=== PATIENT | female | born 1985 | race Two or more races ===

== ENCOUNTER → 2021-01-19 11:54 | Outpatient (BNVA) | payer OTHER, SELFPAY | PROVIDERS: Visit Provider Surgery ==

== ENCOUNTER 2021-01-24 13:13 | Outpatient (REF) | payer OTHER, SELFPAY ==
--- NOTE | ~2021-01-24 | XR_ITS ---
EXAMINATION: XR CHEST CLINICAL INFORMATION: Obesity COMPARISON: Previous chest x-ray July 2019 TECHNIQUE: 2 views of the chest were obtained. FINDINGS: No significant abnormality is noted involving the heart, lungs, mediastinum, bony thorax or soft tissues. XR/XR chest 2V IMPRESSION: Unremarkable examination.
--- NOTE | 2021-01-24 13:28 | ECG_ITS ---
Test Reason : E66.01 Blood Pressure : / mmHG Vent. Rate : 078 BPM Atrial Rate : 078 BPM P-R Int : 152 ms QRS Dur : 078 ms QT Int : 400 ms P-R-T Axes : 029 034 032 degrees QTc Int : 456 ms Normal sinus rhythm Normal ECG When compared with ECG of 30-JUL-2019 11:40, No significant change was found Referred By: Saul Tomas Electronically Signed By:Udya Flores
[2021-01-24 13:55] LABS: MANUAL DIFF FLAG NO
[2021-01-24 14:16] LABS: Basophils Percent Auto 0.5 % (0-2); Eosinophils Absolute Auto 0.2 X10*3/uL (0.0-0.4); Eosinophils Percent Auto 2.7 % (0-4); Hematocrit 32.2 % (37-47); Hemoglobin 9.8 g/dl (12.0-16.0); Imm Gran Abs Auto 0.02 X10*3/uL (0.00-0.03); Imm Gran Pct Auto 0.4 % (0.0-0.4); Lymphocytes Absolute Auto 1.6 X10*3/uL (1.2-4.9); Lymphocytes Percent Auto 28.6 % (20-40); Mean Corpuscular HGB Conc 30.4 g/dl (31.0-35.0); Mean Corpuscular Volume 78.9 fL (80-98); Mean Platelet Volume 11.1 fL (9.4-12.3); Monocytes Absolute Auto 0.4 X10*3/uL (0.1-1.2); Neutrophils Absolute Auto 3.3 X10*3/uL (2.0-8.3); Neutrophils Percent Auto 59.8 % (45-73); Platelet Count 293 X10*3/uL (160-400); Red Blood Count 4.08 X10*6/uL (4.20-5.50); Red Cell Distribution Width 16.5 % (11.0-16.0); White Blood Count 5.5 X10*3/uL (4.8-10.8)
[2021-01-24 14:20] LABS: Alanine Aminotransferase 13 U/L (0-31); Alkaline Phosphatase 67 U/L (39-117); Anion Gap 12 (12-20); Aspartate Amino Transferase 12 U/L (5-31); Bilirubin Total 0.3 mg/dL (0.0-1.0); Blood Urea Nitrogen 16 mg/dL (9-16); C Reactive Protein 1.49 mg/dL (< or = 0.50); Calcium 8.7 mg/dL (8.4-10.2); Carbon Dioxide 24 mmol/L (22-29); Chloride 109 mmol/L (96-108); Cholesterol 185 mg/dL; Estimated Glomerular Filt Rate > 60; Glucose Random 91 mg/dL (60-115); HDL Cholesterol 41 mg/dL; LDL Cholesterol Calculated 125 mg/dl; Potassium 4.7 mmol/L (3.3-5.1); Sodium 140 mmol/L (135-145); Total Protein 7.1 g/dL (6.5-8.0); Triglycerides 96 mg/dL
[2021-01-24 14:27] LABS: Estimated Average Glucose 103 mg/dL; Hemoglobin A1c % 5.2 %
[2021-01-24 14:42] LABS: Ferritin 14 ng/mL (10-122); TSH reflex Free T4 0.78 uIU/mL (0.32-4.0)
[2021-01-24 15:14] LABS: Folate 14.2 ng/mL (> or = 4.0); Vitamin B12 437 pg/mL (200-900)
[2021-01-25 04:41] LABS: Insulin Level Total 25.9 uIU/mL
[2021-01-25 17:52] LABS: Calcium (PTHI) 8.9 mg/dL (8.6-10.2); PTHI 56 pg/mL (14-64)
[2021-01-26 17:06] LABS: Zinc 50 mcg/dL (60-130)
[2021-01-28 13:31] LABS: Vitamin B1 13 nmol/L (8-30)
[2021-01-28 15:26] LABS: Vitamin A 31 mcg/dL (38-98)
== END 2021-01-24 13:14 | disposition home or self-care (01) ==
LOC: HO.LAB 13:13
PROVIDERS: Visit Provider Surgery
DX: E66.01 Morbid (severe) obesity due to excess calories (principal); R73.03 Prediabetes; G47.30 Sleep apnea, unspecified; K21.9 Gastro-esophageal reflux disease without esophagitis
CPT/HCPCS: 36415; 71046; 80053; 80061; 82306; 82607; 82728; 82746; 83036; 83525; 83970; 84425; 84443; 84590; 84630; 85025; 86140; 93005

== ENCOUNTER → 2021-02-03 14:11 | Outpatient (BNVA) | payer OTHER, SELFPAY | PROVIDERS: PCP Internal Medicine; Visit Provider Dietitian, Registered | DX: E66.01 Morbid (severe) obesity due to excess calories (principal) | CPT/HCPCS: 97802 ==

== ENCOUNTER 2021-02-08 07:46 | Outpatient (REF) | payer OTHER, SELFPAY ==
--- NOTE | ~2021-02-08 | FL_ITS ---
EXAMINATION: XR GI SERIES CLINICAL INFORMATION: Morbid to severe obesity. COMPARISON: None TECHNIQUE: Routine upper GI air-contrast study was performed. FINDINGS: Following oral administration of thick barium and effervescent granules, there is normal propagation of bolus from the oral cavity through the pharynx, esophagus into stomach without any evidence of obstruction, narrowing or stricture. The course, caliber and peristalsis of the stomach, duodenal bulb and the sweep are normal. The mucosal pattern of the stomach and the duodenum is normal. Incidental note is made of cholecystectomy. FLUOROSCOPY TIME: 1.4 minutes DOSE AREA PRODUCT: 63.562 uGy-m2 (microgray-meter squared) FL/FL upper GI series IMPRESSION: Unremarkable upper GI air-contrast study.
--- NOTE | ~2021-02-08 | US_ITS ---
EXAMINATION: US COMPLETE ABDOMEN WITH LIVER ELASTOGRAPHY CLINICAL INFORMATION: Eyqqshij-sy-pxwstf obesity due to excess calories. COMPARISON: None. TECHNIQUE: Real-time imaging of the abdominal viscera. Noninvasive ultrasound liver fibrosis assessment is performed using Kanu ElastPQ point quantification shear wave elastography (pSWE) with a C5-2 MHz transducer. Multiple elastography samples are obtained. FINDINGS: PANCREAS: The tail of the pancreas is obscured by overlying gas. The visualized pancreatic head and body are normal in appearance. The remainder of the pancreas is obscured from visualization by the overlying bowel gas. ABDOMINAL AORTA: The proximal, middle, and distal aortic segments are normal in caliber. INFERIOR VENA CAVA: Visualized portions are normal. LIVER: The liver demonstrates normal size, contour and increased echogenicity. No focal lesion or intrahepatic biliary duct dilatation. The right lobe measures 16.9 cm in length. The left lobe measures 11.7 cm in length. Portal flow is hepatopedal. Shear wave liver elastography median stiffness is 1.34 m/s (reference: normal median stiffness is 1.3 m/s or less). IQR/median stiffness to assess sampling precision is 0.15 (reference: good quality data set is IQR/median stiffness of 0.15 or less). GALLBLADDER: The gallbladder has been surgically removed. COMMON BILE DUCT: Normal in caliber measuring 0.3 cm in diameter. RIGHT KIDNEY: Normal. No hydronephrosis. No renal calculi or focal parenchymal lesions. The kidney measures 11.7 cm in maximum dimension. LEFT KIDNEY: Normal. No hydronephrosis. No renal calculi or focal parenchymal lesions. The kidney measures 11.1 cm in maximum dimension. SPLEEN: Normal. The spleen measures 9.5 cm in maximum dimension. FREE FLUID: None. US/US abdomen comp w elastography IMPRESSION: 1. Hepatic steatosis with no focal lesion. 2. Liver elastography: Median stiffness 1.34. High probability of normal. REFERENCE: Society of Radiologists in Ultrasound Liver Stiffness Thresholds (2020): LIVER STIFFNESS THRESHOLDS: *Liver Stiffness equal or less than 1.3 m/s: High probability of being normal. *Liver Stiffness less than 1.7 m/s: In the absence of other known clinical signs, rules out compensated advanced chronic liver disease. *Liver Stiffness 1.7-2.1 m/s: Suggestive of compensated advanced chronic liver disease but need further test for confirmation. *Liver Stiffness over 2.1 m/s: Rules in compensated advanced chronic liver disease. *Liver Stiffness over 2.4 m/s: Suggestive of clinically significant portal hypertension. QUALITY OF DATA SET: *IQR/Median value equal or less than 0.15 implies a quality data set. *IQR/Median value over 0.15 implies a poor quality data set. SIGNIFICANT CHANGE FROM PRIOR EXAM: Significant change if liver stiffness measurement is 10% or greater from prior exam. OTHER CONSIDERATIONS: The stage of liver fibrosis may be overestimated in the setting of acute hepatitis, liver inflammation, elevated liver function tests, hepatic vascular congestion, obstructive cholestasis, non-fasting state, and infiltrative diseases such as amyloidosis and lymphoma. In some patients with NAFLD, the liver stiffness thresholds for compensated advanced chronic liver disease may be lower. In causes other than viral hepatitis and NAFLD, liver stiffness thresholds are not well established.
[2021-02-09 13:56] LABS: H Pylori Breath Test NOT DETECTED (NOT DETECTED)
== END 2021-02-08 07:47 | disposition home or self-care (01) ==
LOC: HO.US 07:46
PROVIDERS: Visit Provider Surgery
DX: Z01.818 Encounter for other preprocedural examination (principal); E66.01 Morbid (severe) obesity due to excess calories; K21.9 Gastro-esophageal reflux disease without esophagitis; R73.03 Prediabetes; G47.30 Sleep apnea, unspecified
CPT/HCPCS: 74240; 76705; 76981; 83013; 99211

== ENCOUNTER → 2021-02-10 08:19 | Outpatient (BNVA) | payer OTHER, SELFPAY | PROVIDERS: Visit Provider Surgery ==

== ENCOUNTER → 2021-02-23 08:16 | Outpatient (BNVA) | payer OTHER, SELFPAY | PROVIDERS: Visit Provider Dietitian, Registered | DX: E66.01 Morbid (severe) obesity due to excess calories (principal); Z68.43 Body mass index [BMI] 50.0-59.9, adult | CPT/HCPCS: 97803 ==

== ENCOUNTER → 2021-02-27 15:02 | Outpatient (BNVA) | payer OTHER, SELFPAY | PROVIDERS: Visit Provider Physician Assistant ==

== ENCOUNTER → 2021-03-06 08:21 | Outpatient (BNVA) | payer OTHER, SELFPAY | PROVIDERS: Visit Provider Surgery ==

== ENCOUNTER → 2021-04-03 07:41 | Outpatient (BNVA) | payer OTHER, SELFPAY | PROVIDERS: Visit Provider Surgery ==

== ENCOUNTER → 2021-05-08 07:02 | Outpatient (BNVA) | payer OTHER, SELFPAY | PROVIDERS: Visit Provider Surgery ==

== ENCOUNTER → 2021-06-21 08:02 | Outpatient (BNVA) | payer OTHER, SELFPAY | PROVIDERS: Visit Provider Surgery ==

== ENCOUNTER → 2021-06-28 07:21 | Outpatient (BNVA) | payer OTHER, SELFPAY | PROVIDERS: Visit Provider Surgery ==

== ENCOUNTER → 2021-07-10 08:30 | Outpatient (BNVA) | payer OTHER, SELFPAY | PROVIDERS: Visit Provider Surgery ==

== ENCOUNTER → 2021-08-09 08:08 | Outpatient (BNVA) | payer OTHER, SELFPAY | PROVIDERS: Visit Provider Surgery | DX: E66.01 Morbid (severe) obesity due to excess calories (principal) ==

== ENCOUNTER 2021-10-28 11:09 | Outpatient (REF) | payer OTHER, SELFPAY ==
[2021-10-28 12:45] LABS: COVID-19 Test Positive (Negative); IDNOW Serial# 16C4AD1C
== END 2021-10-28 11:10 | disposition home or self-care (01) ==
LOC: HO.LAB 11:09
PROVIDERS: Visit Provider Internal Medicine
DX: Z20.822 Contact with and (suspected) exposure to COVID-19 (principal)
CPT/HCPCS: 36415; 87635; C9803

== ENCOUNTER → 2025-03-26 11:07 | Outpatient (BNVA) | payer OTHER, SELFPAY | PROVIDERS: Visit Provider Physician Assistant Surgical ==

== ENCOUNTER 2025-04-23 08:29 | Outpatient (AMB) | payer OTHER, SELFPAY ==
--- OUTSIDE RECORDS SUMMARY | 2025-04-23 08:38 | XMS_ITS | Clinical Summary ---
Author Organization [facility] Address [address] [place] [address] Care Team Providers Care Physical Education Specialist Name Role Phone Edvin Leigh Primary Care Provider [phone] Source Comments PLEASE NOTE, if this patient is a minor, it may be UNLAWFUL to discuss sensitive information that is contained in these records (such as FAMILY PLANNING, MENTAL HEALTH or SUBSTANCE ABUSE) with the minor patient's parent or other person without the patient's specific authorization.[facility] Allergies No known active allergies Medications cyclobenzaprine (FLEXERIL) 10 mg tablet Take 1 Tab by mouth 3 (three) times daily as needed for muscle spasms 10 Tab 08/01/2017 Active naproxen (NAPROSYN) 500 mg tablet Take 1 Tab by mouth 2 (two) times daily as needed (pain) 60 Tab 2 01/01/2018 Active metoprolol succinate (TOPROL-XL) 100 mg 24 hr tabletIndication s:Tachycardia TAKE 1 TABLET BY MOUTH ONCE DAILY 30 Tab 06/16/2018 Active Active Problems Problem Noted Date Diagnosed Date Tachycardia Heel spur, left Immunizations Immunization Administration Dates Next Due Flu, Preservative Free 08/01/2017 Family History Medical History Relation Name Comments Thyroid Disease Maternal Grandmother Diabetes Mother Hypertension Mother Thyroid Disease Mother Relation Name Status Comments Maternal Grandmother Mother Social History Tobacco Use Types Packs/Day Years Used Date Smoking Tobacco: Never Smokeless Tobacco: Never Alcohol Use Standard Drinks/Week Comments No 0 (1 standard drink = 0.6 oz pur e alcohol) Social Connections Answer Date Recorded Social Connections and Isolation 0 06/21/2019 Financial Resource Strain Answer Date R ecorded Financial Resource Strain 0 2018 Stress Answer Date Recorded Stress 0 06/21/2019 Physical Activity Answer Date Recorded Physical Activity 0 06/21/2019 Food Insecurity Answer Date Recorded Food 0 06/21/2019 Transportation Needs Answer Date Record ed Transportation 0 06/21/2019 Housing Stability Answer Date Recorded Housing 0 06/21/2019 Safety and Environment Answer Date Abundio rded Safety 0 06/21/2019 Utilities Answer Date Recorded Utilities 0 06/21/2019 Employment Answer Date Recorded Employment 0 06/21/2019 Comments No Sex and Gender Information Value Date Recorded Sex Assigned at Female 08/01/2017 6:51 AM PDT Legal Sex Female 11:00 AM PDT Gender Identity Female 08/01/2017 6:51 AM PDT Sexual Orientation Straight 08/01/2017 6: 51 AM PDT Last Filed Vital Signs Vital Sign Reading Time Taken Comments Blood Pressure 130/90 12/24/2017 10:00 AM EST Pulse 72 12/24/2017 10:00 AM EST Temperature 36.9 C (98.5 F) 12/24/2017 10:00 AM EST Respiratory Rate 14 12/24/2017 10:0 0 AM EST Oxygen Saturation - - Inhaled Oxygen Concentration - - Weight 147.6 kg (325 lb 6.4 oz) 018 10:00 AM EST Height 174.5 cm (5' 8.7 ) 08/01/2017 9:46 AM EDT Body Mass Index 48.47 08/01/2017 9:46 AM EDT Plan of Treatment Health Maintenance Due Date Last Done Comments Anxiety Screening 1984 Diabetes Screening 1984 HPV Screening 1984 Hepatitis C Screening 1984 Lipid Screening 1984 Pap + HPV 1984 Tobacco Screening 1984 HIV Screening 02/25/1999 Imm-DTaP/Tdap/Td (1 - Tdap) 02/25/2003 Imm-Hepatitis B (1 of 3 - 19+ 3-dose series) 3 Cervical Cancer Screening 02/25/2005 Pap Smear 02/25/2005 Annual Wellness (Adult): Indicated (All Coverage) 02/201808/01/2017 Relationship Safety Screening/Counseling 08/01/2018 08/01/2017 Hypertension Screening (#1) 12/24/2018 Breast Cancer Screening (Mammogram) 2024 [id number] () 06/28/2024 Alcohol and Drug Screen 10/28/2024 Depression Annual Screen 10/28/2024 08/01/2017 Imm-Influenza (Season Ended) 2025 08/01/2017 Cervical Ablation/Cold-Knife Conization Discontinued Cervical Cryotherapy Discontinued Colposcopy Discontinued Endometrial Biopsy Discontinued Excision/Leep Discontinued HPV Genotyping Discontinued Vaginal Pap Discontinued Vulvoscopy Discontinued Insurance [place] MEDICAID Care Teams Physical Education Specialist Relationship Specialty Start Date End Date Edvin Leigh PA [address] [place] [address] PCP - General Internal Medicine 06/20/17
--- NOTE | 2025-04-23 13:53 | A.OFFVIS_ITS ---
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 *SLIP FEEDER* Internet Site Designer Required: Yes Internet Site Designer Services: Internet Site Designer Present Information Interpreted: clinical only Allergies No Known Allergies (No Known Allergies*) Allergy (Verified 04/23/25 13:54) Medication List - Last Reconciled 04/23/25 by Saul Tomas MD albuterol sulfate 90 mcg/actuation 2 puffs inhalation Q6H PRN cholecalciferol (vitamin D3) 125 mcg PO DAILY iron,carbonyl-vitamin C 65 mg iron- 125 mg (Vitron-C) 1 tab PO DAILY sertraline 50 mg PO DAILY HPI HPI 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 *SLIP FEEDER*: Details: Start time: 1.45pm, End time: 2.20pm ?I spent 30 minutes speaking with the patient on the phone plus an additional 5 minutes reviewing and updating records for a total of 35 minutes HPI Comments Details: Previous weight loss efforts: [facility] x2 Wakes up: 7am, Sleeps: 10pm Breakfast: 8.30am (eggs, or Premier protein shake) Lunch: 12pm (salad or pasta) Dinner: 5pm (meat, rice, salad) Snacks: none Exercise: has home Elliptical Beverages: Coffee/tea: none, soda: regular a few times per week, juice: several days per week, ETOH: Wine (1/week) PFSH Medical History (Updated 03/07/21 @ 10:37 by Kelsea Forrest [facility]) GERD (gastroesophageal reflux disease) Asthma Sleep apnea with use of continuous positive airway pressure (CPAP) Prediabetes Depression Morbid obesity Surgical History (Updated 03/26/25 @ 11:18 by Deborah Martin CMA) Hx of tubal ligation S/P S/P laparoscopic cholecystectomy Family History (Updated 03/26/25 @ 11:20 by Deborah Martin CMA) Mother Depression Diabetes Hypertension Kidney problem Father Kidney problem Hypertension Son Mental impairment ADHD Depression Social History (Updated 03/26/25 @ 11:21 by SHILPA Horowitz Alcohol intake: current Alcohol intake frequency: holidays/special occasions only Patient Tobacco Use Status: Never used Tobacco Telehealth Telehealth Telehealth Platform: Telephone Location of provider rendering services: practice address Location of patient: address on file Patient Identification confirmed using: Name, : Yes Telehealth method: voice only Patient verbally consented to treatment: Yes Patient verbally consented to billing insurance company: Yes Patient informed of any privacy concerns related to visit: Yes Minutes spent on Phone/Video with Pt.: 35 Assessment & Plan Assessment & Plan (1) Morbid obesity: Code(s): E66.01 - Morbid (severe) obesity due to excess calories Category: Medical Plan: 1.? Plan for lap sleeve gastrectomy. If diaphragmatic or ventral hernias are present at time of surgery, these will be repaired laparoscopically as well. I emphasized the importance of close follow-up, adherence to instructions and good communication. The surgery does not replace the need to change your lifestlyle which is the cause of the obesity problem. The surgery provides the motivation to try again to change your lifestyle, it reduces the appetite and make the transition to a better lifestyle easier and doubles the amount of weight you would lose compared to doing the lifestyle change without the surgery. You will need to be on a liquid diet with protein shakes for 2 weeks before surgery to maximize weight loss and boost your nutritional status to recover better from surgery and also for the first two weeks after surgery to let the stomach heal before we introduce other foods. After the first 2 weeks we will introduce protein bars and soft foods like scrambled eggs, cottage cheese and yogurt and after the 6th week will introduce meat, fish and cooked vegetables in small amounts. Over time you should be able to eat everything in small amounts. Side effects like nausea, vomiting, heartburn or abdominal pain are not common in the practice unless you are not following in the practice. This operation requires lifetime commitment to following in our practice and communication with me. You will much less weight and experience side effects if you don?t communicate or not following in the practice. Complications are rare and in our practice is about 1/10 of the national average. However, you can develop bleeding that may require transfusion (hasn?t happened for year in the practice), you may from complications (we did not have any deaths in the practice) and infections. Infections are usually a result of breakdown in communication or not understanding or following directions correctly. They are difficult to treat, they can happen during the first 6 weeks, they may require to be in the hospital for weeks or even months, not being able to eat by mouth and you may have drains and surgeries to try and correct the issue. Other risks and complications include possible conversion to an open procedure, leaks, small bowel obstruction, blood clots, cardiac, or pulmonary complications, as intermediate accountant complications such as ulcers, insufficient weight loss and vitamin deficiencies. 2.?Nutritional counseling. Start with one premade PREMIER protein (buy at [address] or [employer]) shake (8oz NOT the whole bottle) at 8am-10am, one protein bar (Fit Crunch protein bar, buy at [employer], or [address]) at 11am-1pm, another premade PREMIER protein shake (8oz NOT the whole bottle) at 2pm-4pm, dinner at 5pm (10 forks of protein and 10 forks of salad/vegetables), another [employer] Crunch protein bar at 7pm-9pm. So you do 2 protein shakes, 2 protein bars and one meal per day. Meal to include lean meat (beef, fish, pork, turkey, chicken), or swiss yogurt, or egg whites, or beans with a salad with olive oil and fruits (berries, pears, apples, kiwi). Avoid salt, breads, potatoes, rice, pasta, desserts. 3. Each shake would be drunk slowly, like coffee in a period of 2 hours. 4. Cut each bar in 4 pieces and eat each piece in 30min ?to make each bar last 2 hours. 5. I emphasized the importance of measuring accurately the food portion and measure it when serving the food in plate 6. The meal portions include 10 full-size forks of meat and 10 full-size forks of salad. You always eat the meat portion but you can replace up to 5 forks for salad/vegetables with rice, potatoes or pasta, or a fruit ?if you like. The less you do it the better weight loss will be. 7. One full-size fork is what it can be scooped on the fork without falling aside and not what can be bit with the fork. Use regular forks like those you find in a typical restaurant. 8.? Please buy the body composition scale we discussed and send me weight measurements as soon as possible and then once a week. Always include your diet and exercise plan. 9. Start Elliptical with an incline of 2.0 and resistance of 4.0. Increase resistance by 1 every 3 min to a max resistance of 10.0, and repeat cycles for 300 calories. 10. Goal is to lose at least 1.5-2lbs per week 11. Goal to lose 10% of your weight before surgery, which is about 36lbs. Ultimate weight goal: 300lbs before surgery 12. Please follow the diet plan exactly without any change. If you don't like s santo about the plan or you feel hungry you need to communicate with me so I can help you revise the plan. You should not change the plan yourself 13. To be scheduled for EGD to assess the stomach's anatomy. The possibility of biopsies was discussed. Patient needs to avoid use of NSAIDs and aspirin for 1 week prior to EGD. You must be on liquids only the day before your endoscopy. Risks of perforation and bleeding was discussed with the patient. This will be an outpatient procedure with IV sedation. Orders: Orders Hemoglobin A1c Today E16.1 - Other hypoglycemia, E66.01 - Morbid (severe) obesity due to excess calories, R73.03 - Prediabetes H Pylori Breath Test Today E16.1 - Other hypoglycemia, E66.01 - Morbid (severe) obesity due to excess calories, R73.03 - Prediabetes Complete Blood Count Auto Diff Today E16.1 - Other hypoglycemia, E66.01 - Morbid (severe) obesity due to excess calories, R73.03 - Prediabetes Lipid Panel Today E16.1 - Other hypoglycemia, E66.01 - Morbid (severe) obesity due to excess calories, R73.03 - Prediabetes Zinc Today E16.1 - Other hypoglycemia, E66.01 - Morbid (severe) obesity due to excess calories, R73.03 - Prediabetes C Reactive Protein Today E16.1 - Other hypoglycemia, E66.01 - Morbid (severe) obesity due to excess calories, R73.03 - Prediabetes Vitamin B1 Today E16.1 - Other hypoglycemia, E66.01 - Morbid (severe) obesity due to excess calories, R73.03 - Prediabetes Vitamin A Today E16.1 - Other hypoglycemia, E66.01 - Morbid (severe) obesity due to excess calories, R73.03 - Prediabetes Vitamin D 25-OH Total Today E16.1 - Other hypoglycemia, E66.01 - Morbid (severe) obesity due to excess calories, R73.03 - Prediabetes ECG 12 lead EKG Today E16.1 - Other hypoglycemia, E66.01 - Morbid (severe) obesity due to excess calories, R73.03 - Prediabetes Insulin Today E16.1 - Other hypoglycemia, E66.01 - Morbid (severe) obesity due to excess calories, R73.03 - Prediabetes IRON PROFILE Today E16.1 - Other hypoglycemia, E66.01 - Morbid (severe) obesity due to excess calories, R73.03 - Prediabetes Comprehensive Met. Panel Today E16.1 - Other hypoglycemia, E66.01 - Morbid (severe) obesity due to excess calories, R73.03 - Prediabetes Vitamin B12 and Folate Today E16.1 - Other hypoglycemia, E66.01 - Morbid (severe) obesity due to excess calories, R73.03 - Prediabetes TSH reflex Free T4 Today E16.1 - Other hypoglycemia, E66.01 - Morbid (severe) obesity due to excess calories, R73.03 - Prediabetes Ferritin Today E16.1 - Other hypoglycemia, E66.01 - Morbid (severe) obesity due to excess calories, R73.03 - Prediabetes US abdomen comp w elastography Today E16.1 - Other hypoglycemia, E66.01 - Morbid (severe) obesity due to excess calories, R73.03 - Prediabetes XR chest 2V Today E16.1 - Other hypoglycemia, E66.01 - Morbid (severe) obesity due to excess calories, R73.03 - Prediabetes FL upper GI w air Today E16.1 - Other hypoglycemia, E66.01 - Morbid (severe) obesity due to excess calories, R73.03 - Prediabetes Referrals Behavioral Health Referral E16.1 - Other hypoglycemia, E66.01 - Morbid (severe) obesity due to excess calories, R73.03 - Prediabetes Nutrition/Dietitian Referral E16.1 - Other hypoglycemia, E66.01 - Morbid (severe) obesity due to excess calories, R73.03 - Prediabetes
[2025-04-23 14:05] VITALS: BMI 51.1
== END 2025-04-23 14:20 | disposition home or self-care (01) ==
LOC: HO.HBS 08:29
PROVIDERS: Visit Provider Surgery
DX: E66.01 Morbid (severe) obesity due to excess calories (principal)
CPT/HCPCS: 99203

== ENCOUNTER 2025-05-18 08:24 | Outpatient (AMB) | payer OTHER, SELFPAY ==
--- OUTSIDE RECORDS SUMMARY | 2009-02-21 09:16 | XMS_ITS | Continuity of Care Document ---
Author Organization [facility] Address [address] [place] [address] Phone Care Team Providers Care Chainsaw Mechanic Name Role Phone Shantel Jo Unavailable Unavailable Advance Directives Directive Yes / No Effective Date File Name No Information Encounters Encounter Description Practice Location Reason(s) For Visit Diagnoses Date Provider [facility], [address] [place] [address], tel:[phone] 00 [facility] No Information 2008 Cristin Funes. 70 [facility], [id number] [address] [place] [address], [facility], . tel:[phone] Family History Family Member Type Diagnosis Age At Onset No Information Payers Payer name Insurance type Covered green party ID Authoriza tion(s) No Information Social History Type Description Quantity Date Captured Comments Sex Female Smoking Status No Information Chief Complaint And Reason For Visit No Information History Of Present Illness Encounter Date Complaint History Of Prese nt Illness No Information Instructions Date Instruction Additional Infor mation No Information Assessments Type Assessment Date No Information
--- NOTE | 2025-05-18 08:05 | A.OFFWM_ITS ---
Intake Intake Visit Reasons: TV BH Intake Allergies No Known Allergies (No Known Allergies*) Allergy (Verified 04/23/25 13:54) PFSH Medical History (Updated 03/07/21 @ 10:37 by Kelsea Forrest [facility]) GERD (gastroesophageal reflux disease) Asthma Sleep apnea with use of continuous positive airway pressure (CPAP) Prediabetes Depression Morbid obesity Surgical History (Updated 03/26/25 @ 11:18 by Deborah Martin [facility]) Hx of tubal ligation S/P S/P laparoscopic cholecystectomy Family History (Updated 03/26/25 @ 11:20 by Deborah Martin CHIEF SCIENTIFIC OFFICER) Mother Depression Diabetes Hypertension Kidney problem Father Kidney problem Hypertension Son Mental impairment ADHD Depression Social History (Updated 03/26/25 @ 11:21 by Deborah Martin [facility]) Alcohol intake: current Alcohol intake frequency: holidays/special occasions only Patient Tobacco Use Status: Never used Tobacco Behavioral Health Assessment Weight Management Therapy Therapy Notes Details The patient is a 40-year-old female presenting for an initial visit to begin a behavioral health (BH) assessment as part of the surgical weight loss program. She is self-referred. The patient initially started the program in 2020 but did not continue due to relocating back to [place]. Presenting Concerns Referral Source WMP-Provider. Reason for referral Completion of behavioral health assessment as part of process for weight-loss surgery. Precipitating Event Obesity. Living Situation Current Living Situation Rent At risk of losing current housing? No Satisfied with current living situation? Yes Comments PT lives with her son (13 y/o) and 25 y/o niece. They also have 1 dog and 2 cats. Social History Family history and relationship Pt from son's father when he was 4 months old, she never . Parents are alive, they live in [place]. She has 2 siblings, one in [place] and the other in [place]. PT reports good family dynamics, talks to her parents daily. Parental/Familial nonfarm animal caretaker obligations 13 y/o son. Full custody. Developmental history and status None reported, currently WNL. 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 Community support religious community [employer]uality [employer], attends religious weekly. Cultural/Ethnic information , born and raised in [place]. Decide to move [place] the [place] in [place]. Legal Involvement and History Current or historical involvement with the legal system? None. Education Highest grade completed Associates degree in social work. Currently enrolled in a Bachelors degree. Preferred learning style Auditory Currently enrolled in educational program? Yes Interested in further educational program? No Educational Interests/Skills Would like to have her own business. 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 Wants help to find employment? No Meaningful activities listen to music, audiobooks, spend time with her family. Financial Situation Describe current financial situation Comfortable Financial assistance? Food [place] Service Service? No Mental Health and Addiction Treatment Current/Past substance abuse? No Comments Alcohol:1x weekly, 2-3 glasses of wine Cigarettes/Tobacco: None. Hooka occasionally Cannabis/Edibles: None Current/Past addictive behavior concerns? No Psychiatric history PT attended counseling about 8 years ago due to anxiety. currently not in counseling, however her PCP is prescribing her with sertraline 50mg 1 x day. Never been inpatient or in a crisi. There is no history and/or current concern about SI/Sa and self-harm or other harm. Medical and Physical Health Summary Additional Medical History not covered in history None aditional Sexual History concerns None reported Physical exam in the last year? Yes (PCP; [facility] med. Practices. [address] [place], [place]) Pain Screening Current pain? No Pain in the last few months? No Medications Is the patient compliant with medications? Yes Does the patient have Cohen Guardian in place? Not applicable Does the patient use complimentary health approaches? No Trauma/Abuse History History of trauma? No Questionnaires PHQ-9 Over the last 2 weeks, how often have you been bothered by any of the following problems? 1. Little interest or pleasure in doing things: not at all 2. Feeling down, depressed, or hopeless: not at all 3. Trouble falling or staying asleep, or sleeping too much: not at all 4. Feeling tired or having little energy: nearly every day 5. Poor appetite or overeating: not at all 6. Feeling bad about yourself - or that you are a failure or have let yourself or your family down: not at all 7. Trouble concentrating on things, such as reading the newspaper or watching television: not at all 8. Moving or speaking so slowly that other people could have noticed. Or the opposite - being so fidgety or restless that you have been moving around a lot more than usual: not at all 9. Thoughts that you would be better off or of hurting yourself in some way: not at all Total score: 3 Depression Screening Interpretation: Negative (From new PT pack completed on 03/26/2025) Depression Screening Done: Yes Source: Developed by Drs. Brooks Ball, Melissa Quintero, Marty Collier and colleagues, with an educational anna from [employer]. Assessment & Plan Assessment & Plan (1) Anxiety disorder: Code(s): F41.9 - Anxiety disorder, unspecified Qualifiers: Anxiety disorder type: unspecified anxiety disorder Qualified Code(s): F41.9 - Anxiety disorder, unspecified (2) Pre-bariatric surgery psychological evaluation: Code(s): Z71.89 - Other specified counseling Plan The patient was not cleared today as the assessment was not completed. The patient will return in 2-4 weeks to continue the evaluation. Next appointment: 06/09/2025 at 8am. telehealth. Telehealth Telehealth Telehealth Platform: [facility] Location of provider rendering services: other (Home office. [place], [place]) Location of patient: address on file Patient Identification confirmed using: Name, : Yes Telehealth method: video Patient verbally consented to treatment: Yes Patient verbally consented to billing insurance company: Yes Patient informed of any privacy concerns related to visit: Yes Minutes spent on Phone/Video with Pt.: 50 Coding Level of Care Code New Pt Tele Psy Diag Eval (76989) Patient Type New Diagnoses Anxiety disorder, unspecified type F41.9 Anxiety disorder type: unspecified anxiety disorder Pre-bariatric surgery psychological evaluation Z71.89 Time Spent (min) 50
== END 2025-05-18 08:48 | disposition home or self-care (01) ==
LOC: HO.HBST 08:24
PROVIDERS: Visit Provider Counselor Mental Health
DX: F41.9 Anxiety disorder, unspecified (principal); Z71.89 Other specified counseling
CPT/HCPCS: 90791

== ENCOUNTER 2025-06-09 14:41 | Outpatient (AMB) | payer OTHER, SELFPAY ==
--- NOTE | 2025-06-09 14:40 | MHC.WMTHER ---
Intake Intake Visit Reasons: VIDEO BH F/U Allergies No Known Allergies (No Known Allergies*) Allergy (Verified 04/23/25 13:54) PFSH Medical History GERD (gastroesophageal reflux disease) Asthma Sleep apnea with use of continuous positive airway pressure (CPAP) Prediabetes Depression Morbid obesity Surgical History Hx of tubal ligation S/P S/P laparoscopic cholecystectomy Family History Mother Depression Diabetes Hypertension Kidney problem Father Kidney problem Hypertension Son Mental impairment ADHD Depression Social History Alcohol intake: current Alcohol intake frequency: does not drink Patient Tobacco Use Status: Never used Tobacco Behavioral Health Assessment Weight Management Therapy Therapy Notes Details The patient is a 40-year-old female presenting for a follow up visit to continue a behavioral health (BH) assessment as part of the surgical weight loss program. She is self-referred. The patient initially started the program in 2020 but did not continue due to relocating back to [place]. Presenting Concerns Referral Source WMP-Provider. Reason for referral Completion of behavioral health assessment as part of process for weight-loss surgery. Precipitating Event Obesity. Living Situation Current Living Situation Rent At risk of losing current housing? No Satisfied with current living situation? Yes Comments PT lives with her son (13 y/o) and 25 y/o niece. They also have 1 dog and 2 cats. Food/Weight/Diet Expectations of change PT started the program on 04/13/2025 at 336Lbs, and the initial goal is to lose 10% of her weight before surgery, which is about 36lbs. Ultimate weight goal: 300lbs before surgery. PT reports a recent weight as of 06/06/25 323Lbs. Patient wants to achieve a healthier lifestyle and health. Feel better with her body. She would be happy with 240Lbs initially but is open to lose more. PT is implementing the following: Current meal plan: 2 protein shakes, 2 protein bars and one meal per day. Exercise plan: gym membership. Tries to burn 300 calories at least 3 days at week her goal is 5 days. scale: Yes communication with provider: Sundays. History/Relationship with food PT reports she has a hx of being overweight since childhood, used to eat high in carbs and fats. In the past she used to skip meals and have 2 big meals at day. Example of meals before starting the program: Breakfast: 8.30am (eggs with chesse and soda cracker and a cofee or juice) Lunch: 12pm (Leftovers from previous day dinner) Dinner: 6pm (Rice, beans, meat, fried plantains and any type or meat or pasta like lasagna w/ Rice) Snacks: Protein/granola bars, snacks packs with cheese/crackers. Usually 2-3 at day 2 hr after each meal. Beverages: Coffee/tea: 1 in the morning w/ cream and sugar and caramel. Soda: regular, 4 cans at day. Juice: 3 glasses at day. energy Drinks: none. ETOH: Wine and wisky (1-7 on weekends) History/Relationship with weight PT reports she has always been overweight. She believes she was around 200Lbs in middle school. In the last few years, the patient's Lowest weight was 315Lbs and highest 400Lbs in 2012 when . History/Relationship with dieting [facility] 2 times. Herbalife, weight-loss shots (B-12 and other things), self-diets. Max she has lost has been 40Lbs doing diet. Binge Eating Do you frequently eat large amounts of food in short periods of time, not feeling physically hungry? Yes Do you feel out of control when you eat a large amount of food in a short period of time? Yes Do you eat large amounts of food rapidly and typically alone? No Night Eating Do you wake up at least once during the night to eat? No If you wake up in the night, do you find that it is necessary to eat something in order to fall back asleep? No Do you have little or no appetite in the morning and feel very hungry in the evening, often overeating between dinner and when you go to bed? Yes Social History Family history and relationship Pt from son's father when he was 4 months old, she never . Parents are alive, they live in [place]. She has 2 siblings, one in [place] and the other in [place]. PT reports good family dynamics, talks to her parents daily. Parental/Familial clinical scientist obligations 13 y/o son. Full custody. Developmental history and status None reported, currently [facility]. 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 Community support faith community [employer], attends faith weekly. Cultural/Ethnic information , born and raised in [place]. Decide to move to the in 2017. Legal Involvement and History Current or historical involvement with the legal system? None. Education Highest grade completed Associates degree in social work. Currently enrolled in a Bachelors degree. Preferred learning style Auditory Currently enrolled in educational program? Yes Interested in further educational program? No Educational Interests/Skills Would like to have her own business. 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 [employer] Wants help to find employment? No Meaningful activities listen to music, audiobooks, spend time with her family. Financial Situation Describe current financial situation Comfortable Financial assistance? Food [place] Service Service? No Mental Health and Addiction Treatment Current/Past substance abuse? No Comments Alcohol:1x weekly, 2-3 glasses of wine Cigarettes/Tobacco: None. Hooka occasionally Cannabis/Edibles: None Current/Past addictive behavior concerns? No Psychiatric history PT attended counseling about 8 years ago due to anxiety. Currently not in counseling, however her PCP is prescribing her with sertraline 50mg 1 x day. Never been inpatient or in a crisis. There is no history and/or current concern about SI/Sa and self-harm or other harm. Medical and Physical Health Summary Additional Medical History not covered in history None aditional Sexual History concerns None reported Physical exam in the last year? Yes (PCP; [facility]. [facility]. [address] [place], [place]) Pain Screening Current pain? No Pain in the last few months? No Medications Is the patient compliant with medications? Yes Does the patient have Cohen Guardian in place? Not applicable Does the patient use complimentary health approaches? No Trauma/Abuse History History of trauma? No Questionnaires PHQ-9 Over the last 2 weeks, how often have you been bothered by any of the following problems? 1. Little interest or pleasure in doing things: not at all 2. Feeling down, depressed, or hopeless: not at all 3. Trouble falling or staying asleep, or sleeping too much: not at all 4. Feeling tired or having little energy: not at all 5. Poor appetite or overeating: not at all 6. Feeling bad about yourself - or that you are a failure or have let yourself or your family down: not at all 7. Trouble concentrating on things, such as reading the newspaper or watching television: not at all 8. Moving or speaking so slowly that other people could have noticed. Or the opposite - being so fidgety or restless that you have been moving around a lot more than usual: not at all 9. Thoughts that you would be better off or of hurting yourself in some way: not at all Total score: 0 Depression Screening Interpretation: Negative Depression Screening Done: Yes 47345 - PHQ-9 Billing: Yes Source: Developed by Drs. Brooks Ball, Melissa Quintero, Marty Collier and colleagues, with an educational anna from [employer]. Binge Eating Scale Group 1 A. I don't feel self-conscious about my wt. or body size when I'm with others. B. I feel concerned about how I look to others, but it normally does not make me fell disappointed with myself C. I do get self-conscious about my appearance and wt. which makes me feel disappointed in myself. D. I feel very self-conscious about my wt. and frequently I feel intense shame and disgust for myself. I try to avoid social contacts because of my self-consciousness. Response Group 1: B Group 2 A. I don't have any difficulty eating slowly in the proper manner. B. Although I seem to gobble down foods, I don't end up feeling stuffed because of eating to much. C. At times, I tend to eat quickly and then, I feel uncomfortably full afterwards. D. I have the habit of bolting down my food, without really chewing it. When this happens I usually feel uncomfortably stuffed because I've eaten to much. Response Group 2: C Group 3 A. I feel capable to control my eating urges when I want to. B. I feel like I have failed to control my eating more than the average person. C. I feel utterly helpless when it comes to feeling in control of my eating urges. D. Because I feel so helpless about controlling my eating I have become very desperate about trying to get control. Response Group 3: A Group 4 A. I don't have the habit of eating when I'm bored. B. I sometimes eat when I'm bored, but often I'm able to get busy and get my mind off food. C. I have a regular habit of eating when I'm bored, but occasionally, I can use some other activity to get my mind off eating. D. I have a strong habit of eating when I'm bored. Nothing seems to help me breath the habit. Response Group 4: A Group 5 A. I'm usually physically hungry when I eat something. B. Occasionally, I eat something on impulse even though I really am not hungry. C. I have the regular habit of eating foods, that I might not really enjoy, to satisfy a hungry feeling even though physically, I don't need the food. D. Although I'm not physically hungry, I get a hungry feeling in my mouth that only seems to be satisfied when I eat a food, like sandwich, that fills my mouth. Sometimes, when I eat the food to satisfy my mouth hunger, I then spit the food out so I won't gain weight. Response Group 5: B Group 6 A. I don't feel any guilt or self-hate after I overeat. B. After I overeat, occasionally I feel guilt or self-hate. C. Almost all the time I experience strong guilt or self-hate after I overeat. Response Group 6: C Group 7 A. I don't lose total control of my eating when dieting even after periods when I overeat. B. Sometimes when I eat a forbidden food on a diet, I feel like I blew it and eat even more. C. Frequently, I have the habit of saying to myself, I've blown it now, why not go all the way, when I overeat on a diet. When that happens I eat more. D. I have a regular habit of starting a strict diets for myself but I break the diets by going on an eating binge. My life seems to be either a feast or famine. Response Group 7: A Group 8 A. I rarely eat so much food that I feel uncomfortably stuffed afterwards. B. Usually about once a month, I each such a quantity of food, I end up feeling very stuffed. C. I have regular periods during the month when I eat large amounts of food, either at mealtime or at snacks. D. I eat so much food that I regularly feel quite uncomfortable after eating and sometimes a bit nauseous. Response Group 8: A Group 9 A. My level of calorie intake does not go up very high or go down very low on a regular basis. B. Sometimes after I overeat, I will try to reduce my caloric intake to almost nothing to compensate for the excess calories I've eaten. C. I have a regular habit of overeating during the night. It seems that my routine is not to be hungry in the morning but overeat in the evening. D. In my adult years, I have had week-long periods where I practically starve myself. This follows periods when I overeat. It seems I live a life of either feast or famine. Response Group 9: A Group 10 A. I usually am able to stop eating when I want to. I know when enough is enough. B. Every so often, I experience a compulsion to eat which I can't seem to control. C. Frequently, I experience strong urges to eat which I seem unable to control, but at other times I can control my eating urges. D. I feel incapable of controlling urges to eat. I have a fear of not being able to stop eating voluntarily. Response Group 10: A Group 11 A. I don't have any problem stopping eating when I feel full. B. I usually can stop eating when I feel full but occasionally overeat leaving me feeling uncomfortably stuffed. C. I have a problem stopping eating once I start and usually I feel uncomfortably stuffed after I eat a meal. D. Because I have a problem not being able to stop eating when I want, I sometimes have to induce vomiting to relieve my stuffed feeling. Response Group 11: A Group 12 A. I seem to eat just as much when I'm with others, Family social gatherings as when I'm by myself. B. Sometimes, when I'm with other persons, I don't eat as much as I want to eat because I'm self-conscious about my eating. C. Frequently, I eat only a small amount of food when others are present, because I'm very embarrassed about my eating. D. I feel so ashamed about overeating that I pick times to overeat when I know no one will see me. I feel like a closet eater. Response Group 12: A Group 13 A. I eat three meals a day with only an occasional between meal snack. B. I eat 3 meals a day, but I also normally snack between meals. C. When I am snacking heavily, I get in the habit of skipping regular meals. D. There are regular periods when I seem to be continually eating, with no planned meals. Response Group 13: A Group 14 A. I don't think much about trying to control unwanted eating urges. B. At least some of the time, I feel my thoughts are pre-occupied with trying to control my eating urges. C. I feel that frequently I spend much time thinking about how much I ate or about trying not to eat anymore. D. It seems to me that most of my waking hours are pre-occupied by thoughts about eating or not eating. I feel like I'm constantly struggling not to eat. Response Group 14: C Group 15 A. I don't think about food a great deal. B. I have strong craving for food but they last only for brief periods of time. C. I have days when I can't seem to think about anything else but food. D. Most of my days seem to be pre-occupied with thoughts about food. I feel like I live to eat. Response Group 15: B Group 16 A. I usually know whether or not I'm physically hungry. I take the right portion of food to satisfy me. B. Occasionally, I feel uncertain about knowing whether or not I'm physically hungry. A these times it's hard to know how much food I should take to satisfy me. C. Even though I might know how many calories I should eat, I don't have any idea what is a normal amount of food for me. Response Group 16: A Binge Eating Score: 9 Score less than 17 Minimal Risk Score between 18-26 Moderate Risk Score between 27-46 High Risk Assessment & Plan Assessment & Plan (1) Anxiety disorder: Code(s): F41.9 - Anxiety disorder, unspecified (2) Pre-bariatric surgery psychological evaluation: Code(s): Z71.89 - Other specified counseling Plan Following a comprehensive behavioral health assessment?including review of the Binge Eating Scale, PHQ-9, mental status evaluation, and patient self-report?there are currently no behavioral health contraindications to proceeding with bariatric surgery. The patient demonstrates appropriate insight, motivation, and psychological readiness for the procedure. No active psychiatric symptoms or maladaptive eating behaviors were identified that would impede surgical outcomes at this time. The patient is cleared from a behavioral health perspective to proceed with bariatric surgery and documentation can be submitted for insurance approval as indicated. PT will return for a follow-up behavioral health visit 1?4 weeks postoperatively to monitor psychological adjustment, reinforce coping strategies, and screen for any emerging concerns such as mood changes, adjustment difficulties, or disordered eating patterns. Additional behavioral health support will be provided as needed based on postoperative assessment. Next chris: 1-4 weeks PO. Telehealth Telehealth Telehealth Platform: Symptom.[employer] Location of provider rendering services: practice address Location of patient: address on file Patient Identification confirmed using: Name, : Yes Telehealth method: video Patient verbally consented to treatment: Yes Patient verbally consented to billing insurance company: Yes Patient informed of any privacy concerns related to visit: Yes Minutes spent on Phone/Video with Pt.: 60 Coding Level of Care Code Established Pt Tele Psytx >53 mins ([id number]) Patient Type Established Diagnoses Anxiety disorder F41.9 Pre-bariatric surgery psychological evaluation Z71.89 Additional Codes PHQ-9 - 04642 - PHQ-9 Billing: Yes ([id number]) Time Spent (min) 60
--- OUTSIDE RECORDS SUMMARY | 2025-06-09 14:49 | XMS_ITS | Clinical Summary ---
Author Organization [facility] Address [address] [place] [address] Care Team Providers Care Professional Sports Scout Name Role Phone Edvin Leigh Primary Care Provider [phone] Source Comments PLEASE NOTE, if this patient [...] (#1) 12/24/2018 Breast Cancer Screening (Mammogram) 2024 [id number] () 06/28/2024 Alcohol and Drug Screen 10/28/2024 Depression Annual Screen 10/28/2024 08/01/2017 Imm-Influenza (#1) 2025 08/01/2017 Cervical Ablation/Cold-Knife Conization Discontinued Cervical Cryotherapy Discontinued Colposcopy Discontinued Endometrial Biopsy Discontinued Excision/Leep Discontinued HPV Genotyping Discontinued Vaginal Pap Discontinued Vulvoscopy Discontinued Insurance [place] MEDICAID Care Teams Professional Sports Scout Relationship Specialty Start Date End Date Edvin Leigh PA [address] [place] [address] PCP - General Internal Medicine 06/20/17
== END 2025-06-09 15:58 | disposition home or self-care (01) ==
LOC: HO.HBST 14:41
PROVIDERS: Visit Provider Counselor Mental Health
DX: F41.9 Anxiety disorder, unspecified (principal); Z71.89 Other specified counseling
CPT/HCPCS: 90837

== ENCOUNTER 2025-06-23 08:07 | Outpatient (REF) | payer OTHER, SELFPAY ==
--- OUTSIDE RECORDS SUMMARY | 2009-02-21 09:16 | XMS_ITS | Continuity of Care Document ---
Author Organization [facility] Address [address] [place] [address] Phone Care Team Providers Care Certified Respiratory Therapist Name Role Phone Shantel Jo Unavailable Unavailable Advance Directives Directive Yes / No Effective Date File Name No Information Encounters Encounter Description Practice Location Reason(s) For Visit Diagnoses Date Provider [facility], [address] [place] [address], tel:[phone] 00 [facility] No Information 2008 Cristin Funes. 70 [facility], [id number] [address] [place] [address], [facility], . tel:[phone] Family History Family Member Type Diagnosis Age At Onset No Information Payers Payer name Insurance type Covered republican ID Authoriza tion(s) No Information Social History Type Description Quantity Date Captured Comments Sex Female Smoking Status No Information Chief Complaint And Reason For Visit No Information History Of Present Illness Encounter Date Complaint History Of Prese nt Illness No Information Instructions Date Instruction Additional Infor mation No Information Assessments Type Assessment Date No Information
--- NOTE | ~2025-06-23 | XR_ITS ---
EXAMINATION: XR CHEST 2 VIEWS HISTORY: E66.01 - Morbid (severe) obesity due to excess calories COMPARISON: Comparison is made with the prior examination dated 01/24/2021. FINDINGS: PA and lateral views of the chest are submitted. The lungs are expanded and clear. There is no pleural effusion, pneumothorax, or pulmonary vascular congestion. The heart is normal in size. The bones are intact. XR/XR chest 2V IMPRESSION: No acute cardiopulmonary abnormality. Electronically signed by: Brooks Hayes MD 06/23/2025 08:55 AM EDT
--- NOTE | 2025-06-23 08:13 | ECG_ITS ---
Test Reason : e66.1 Blood Pressure : */* mmHG Vent. Rate : 74 BPM Atrial Rate : 74 BPM P-R Int : 150 ms QRS Dur : 86 ms QT Int : 392 ms P-R-T Axes : 16 24 28 degrees QTcB Int : 435 ms Normal sinus rhythm Normal ECG When compared with ECG of 24-Jan-2021 13:39, No significant change was found Referred By: Saul Tomas Electronically Signed By: LALO MITTAL
--- OUTSIDE RECORDS SUMMARY | 2025-06-23 08:27 | XMS_ITS | Clinical Summary ---
Author Organization [facility] Address [address] [place] [address] Phone Care Team Providers Care Flooring Salesperson Name Role Phone Physician, Pcp Unknown Primary Care Provider Tiffany vailable Allergies No known active allergies Medications methocarbamoL (ROBAXIN) 500 mg tablet Take 1 tablet (500 mg total) by mouth 2 (two) times a day for 10 days. 20 tablet 12/21/2024 Active Social History Tobacco Use Types Packs/Day Years Used Date Smoking Tobacco: Never Assessed Comments Unknown Sex and Gender Information Value Date Recorded Sex Assigned at Female 12/21/2024 11:02 AM EST Legal Sex Female 2:03 PM EST Gender Identity Female 12/21/2024 11:02 AM EST Sexual Orientation Straight 12/21/2024 11 :02 AM EST Obstetrics History Last Filed Vital Signs Vital Sign Reading Time Taken Comments Blood Pressure 143/91 01/27/2025 9:31 AM EDT Pulse 84 01/27/2025 9:31 AM EDT Temperature 36.7 C (98.1 F) 01/27/2025 9:31 AM EDT Respiratory Rate 18 01/27/2025 9:31 AM EDT Oxygen Saturation 99% 01/27/2025 9:31 AM EDT Inhaled Oxygen Concentration - - Weight 135 kg (298 lb) 01/27/2025 9:31 AM EDT Height 172.7 cm (5' 8 ) 01/27/2025 9:31 AM EDT Body Mass Index 45.31 01/27/2025 9:31 AM EDT Plan of Treatment Health Maintenance Due Date Last Done Comments Breast Cancer Screening 1984 DTaP,Tdap,and Td Vaccines (1 - Tdap) 02/25/2003 Hepatitis B Vaccines (1 of 3 - 19+ 3-dose series) 02/25/2003 Cervical Cancer Screening: P ap Smear 02/25/2005 HIV Screening 09/26/2022 Hepatitis C Screening 09/26/2022 Social Influencers of Health Screening 09/26/2022 COVID-19 Vaccine (1 - 2023-2 5 season) 2024 Depression Screening 10/28/2024 Influenza Vaccine (#1) 2025 HIB Vaccines Aged Out No longer eligi ble based on patient's age to complete this topic HPV Vaccines Aged Out No longer eligi ble based on patient's age to complete this topic Hepatitis A Vaccines Aged Out No long er eligible based on patient's age to complete this topic IPV Vaccines Aged Out No longer eligi ble based on patient's age to complete this topic MMR Vaccines Aged Out No longer eligi ble based on patient's age to complete this topic Meningococcal ACWY Vaccine Aged Out N o longer eligible based on patient's age to complete this topic Meningococcal B Vaccine Aged Out No l onger eligible based on patient's age to complete this topic Pneumococcal Vaccine: Pediat rics (0 to 5 Years) and At-Risk Patients (6 to 49 Years) Aged Out No longer eligible b ased on patient's age to complete this topic RSV Immunization Patients Un julito 20 months Aged Out No longer eligible b ased on patient's age to complete this topic Varicella Vaccines Aged Out No longer eligible based on patient's age to complete this topic Insurance [facility] MEDICAID ADVANTAGE Care Teams Flooring Salesperson Relationship Specialty Start Date End Date Physician, Pcp Unknown PCP - General 12/21/24
--- OUTSIDE RECORDS SUMMARY | 2025-06-23 08:27 | XMS_ITS | Clinical Summary ---
Author Organization [facility] Address [address] [place] [address] Care Team Providers Care Terminal Computer Operator Name Role Phone Edvin Leigh Primary Care Provider [phone] Source Comments PLEASE NOTE, if this patient [...] (#1) 12/24/2018 Breast Cancer Screening (Mammogram) 2024 [id number] () 06/28/2024 Alcohol and Drug Screen 10/28/2024 Depression Annual Screen 10/28/2024 08/01/2017 Imm-Influenza (#1) 2025 08/01/2017 Cervical Ablation/Cold-Knife Conization Discontinued Cervical Cryotherapy Discontinued Colposcopy Discontinued Endometrial Biopsy Discontinued Excision/Leep Discontinued HPV Genotyping Discontinued Vaginal Pap Discontinued Vulvoscopy Discontinued Insurance [place] MEDICAID Care Teams Terminal Computer Operator Relationship Specialty Start Date End Date Edvin Leigh PA [address] [place] [address] PCP - General Internal Medicine 06/20/17
[2025-06-23 08:38] LABS: MANUAL DIFF FLAG NO
[2025-06-23 09:19] LABS: Hematocrit 38.7 % (37.0-47.0); Hemoglobin 12.1 g/dl (12.0-16.0); Imm Gran Abs Auto 0.03 X10*3/uL (0.00-0.03); Imm Gran Pct Auto 0.6 % (0.0-0.4); Lymphocytes Absolute Auto 1.4 X10*3/uL (1.2-4.9); Mean Corpuscular HGB Conc 31.3 g/dl (31.0-35.0); Mean Corpuscular Hemoglobin 27.7 pg (27.0-33.0); Mean Corpuscular Volume 88.6 fL (80.0-98.0); NRBC Abs Auto 0.000 X10*3/uL (0.0-0.012); NRBC Pct Auto 0.0 /100WBC (0.0-0.2); Platelet Count 254 X10*3/uL (160-400); Red Blood Count 4.37 X10*6/uL (4.20-5.50); White Blood Count 5.1 X10*3/uL (4.8-10.8)
[2025-06-23 09:24] LABS: Hemoglobin A1C 122.9263 umol/L; Total Hemoglobin (HGBA1C) 3198.6229 umol/L
[2025-06-23 09:47] LABS: Alanine Aminotransferase 22 U/L (0-31); Albumin Level 4.2 g/dL (3.5-5.0); Alkaline Phosphatase 74 U/L (39-117); Anion Gap 9 (12-20); Aspartate Amino Transferase 23 U/L (5-31); Blood Urea Nitrogen 12 mg/dL (9-16); Calcium 8.9 mg/dL (8.4-10.2); Carbon Dioxide 25 mmol/L (22-29); Chloride 108 mmol/L (96-108); Cholesterol 170 mg/dL (<200); Estimated Glomerular Filt Rate > 60; HDL Cholesterol 37 mg/dL (>40); Iron 63 mcg/dL (30-160); Percent Iron Saturation 27 % (15-50); Potassium 4.1 mmol/L (3.3-5.1); Sodium 138 mmol/L (135-145); Total Iron Binding Capacity 234 mcg/dL (228-428); Total Protein 7.2 g/dL (6.5-8.0); Triglycerides 155 mg/dL (<150); Unsaturated Iron Binding 171 ug/dL
[2025-06-23 10:06] LABS: Ferritin 120 ng/mL (10-250)
[2025-06-23 10:17] LABS: Folate 8.9 ng/mL (> or = 4.0); Vitamin B12 456 pg/mL (200-900)
== END 2025-06-23 08:08 | disposition home or self-care (01) ==
LOC: HO.XRAY 08:07
PROVIDERS: Visit Provider Surgery
DX: E66.01 Morbid (severe) obesity due to excess calories (principal); R73.03 Prediabetes; E16.1 Other hypoglycemia
CPT/HCPCS: 36415; 71046; 80053; 80061; 82306; 82607; 82728; 82746; 83036; 83525; 83540; 84425; 84443; 84590; 84630; 85025; 86140; 93005

== ENCOUNTER → 2025-06-23 08:13 | Outpatient (BNV) | payer OTHER, SELFPAY | PROVIDERS: Visit Provider Internal Medicine | DX: E66.1 Drug-induced obesity (principal) | CPT/HCPCS: 93010 ==

== ENCOUNTER → 2025-06-23 08:36 | Outpatient (BNV) | payer OTHER, SELFPAY | PROVIDERS: Visit Provider Radiology Diagnostic Radiology | DX: E66.01 Morbid (severe) obesity due to excess calories (principal) | CPT/HCPCS: 71046 ==

== ENCOUNTER 2025-06-23 08:48 | Day surgery (SDC) | payer OTHER, SELFPAY ==
--- OUTSIDE RECORDS SUMMARY | 2025-05-28 13:24 | XMS_ITS | Clinical Summary ---
Author Organization [facility] Address [address] [place] [address] Care Team Providers Care Mines Safety Engineer Name Role Phone Edvin Leigh Primary Care Provider Source Comments PLEASE NOTE, if this patient [...] (#1) 12/24/2018 Breast Cancer Screening (Mammogram) 2024 [id number] () 06/28/2024 Alcohol and Drug Screen 10/28/2024 Depression Annual Screen 10/28/2024 08/01/2017 Imm-Influenza (#1) 2025 08/01/2017 Cervical Ablation/Cold-Knife Conization Discontinued Cervical Cryotherapy Discontinued Colposcopy Discontinued Endometrial Biopsy Discontinued Excision/Leep Discontinued HPV Genotyping Discontinued Vaginal Pap Discontinued Vulvoscopy Discontinued Insurance [place] MEDICAID Care Teams Mines Safety Engineer Relationship Specialty Start Date End Date Edvin Leigh PA [address] [place] [address] PCP - General Internal Medicine 06/20/17
[2025-06-07 14:36] VITALS: BMI 51.1
--- NOTE | 2025-06-07 15:02 | HO.ANESPROP2 ---
Documented by User: Sarah Tidwell NP 06/15/25 12:41 HPI - Anesthesia Eval Consult details Narrative: 40yo F for Upper Endoscopy, 06/23/25 PMF Active Problems Active Problems: All Active Problems Hyperinsulinemia (Acute) Zinc deficiency (Acute) Vitamin A deficiency (Acute) Vitamin B12 deficiency (Acute) Vitamin D deficiency (Acute) Anemia (Acute) GERD (gastroesophageal reflux disease) (Acute) Asthma (Acute) Sleep apnea with use of continuous positive airway pressure (CPAP) (Acute) Prediabetes (Acute) Depression (Acute) Morbid obesity (Acute) Past Medical History Medical History GERD (gastroesophageal reflux disease) Asthma Sleep apnea with use of continuous positive airway pressure (CPAP) Prediabetes Depression Morbid obesity Family History Family History Mother Depression Diabetes Hypertension Kidney problem Father Kidney problem Hypertension Son Mental impairment ADHD Depression Surgical History Surgical History Hx of tubal ligation S/P S/P laparoscopic cholecystectomy Social History Social History Alcohol intake: current Alcohol intake frequency: does not drink Patient Tobacco Use Status: Never used Tobacco Have you been hit, kicked, punched, or otherwise hurt by someone within the past year? If so, by whom?: No Are you DNR?: No Advance Directives: No Advance Directives Information Provided: Yes Meds Allergies Allergy/AdvReac Type Severity Reaction Status Date / Time No Known Allergies (No Known Allergy Verified 04/23/25 13:54 Allergies*) Home Medications ?Medication ?Instructions ?Recorded ?Confirmed ?Last Taken ?Type albuterol sulfate 90 mcg/actuation 2 puff inhalation Q6H PRN Wheezing 01/19/21 06/23/25 06/20/25 History aerosol inhaler sertraline 50 mg tablet 50 mg PO DAILY 01/19/21 06/23/25 06/20/25 History Exam Height,Weight and Vital Signs: Height 5 ft 8 in Weight 152.407 kg Assessment and Plan Assessment Anesthesia Assessment: Chart Reviewed Documented by User: Adriana Sandoval NP 06/22/25 10:27 HPI - Anesthesia Eval Consult details Narrative: 40yo F for Upper Endoscopy, 06/23/25 BMI 51 SANCHO: on CPAP PMFSH Past Medical History Medical History GERD (gastroesophageal reflux disease) Asthma Sleep apnea with use of continuous positive airway pressure (CPAP) Prediabetes Depression Morbid obesity Family History Family History Mother Depression Diabetes Hypertension Kidney problem Father Kidney problem Hypertension Son Mental impairment ADHD Depression Surgical History Surgical History Hx of tubal ligation S/P S/P laparoscopic cholecystectomy Social History Social History Alcohol intake: current Alcohol intake frequency: does not drink Patient Tobacco Use Status: Never used Tobacco Have you been hit, kicked, punched, or otherwise hurt by someone within the past year? If so, by whom?: No Are you DNR?: No Advance Directives: No Advance Directives Information Provided: Yes Meds Allergies Allergy/AdvReac Type Severity Reaction Status Date / Time No Known Allergies (No Known Allergy Verified 04/23/25 13:54 Allergies*) Home Medications ?Medication ?Instructions ?Recorded ?Confirmed ?Last Taken ?Type albuterol sulfate 90 mcg/actuation 2 puff inhalation Q6H PRN Wheezing 01/19/21 06/23/25 06/20/25 History aerosol inhaler sertraline 50 mg tablet 50 mg PO DAILY 01/19/21 06/23/25 06/20/25 History Documented by User: Kay Arvizu MD 06/23/25 13:37 PMFSH Past Medical History Medical History GERD (gastroesophageal reflux disease) Asthma Sleep apnea with use of continuous positive airway pressure (CPAP) Prediabetes Depression Morbid obesity Family History Family History Mother Depression Diabetes Hypertension Kidney problem Father Kidney problem Hypertension Son Mental impairment ADHD Depression Surgical History Surgical History Hx of tubal ligation S/P S/P laparoscopic cholecystectomy History of Problems with Anesthesia: No Social History Social History Alcohol intake: current Alcohol intake frequency: does not drink Patient Tobacco Use Status: Never used Tobacco Have you been hit, kicked, punched, or otherwise hurt by someone within the past year? If so, by whom?: No Are you DNR?: No Advance Directives: No Advance Directives Information Provided: Yes Meds Allergies Allergy/AdvReac Type Severity Reaction Status Date / Time No Known Allergies (No Known Allergy Verified 04/23/25 13:54 Allergies*) Home Medications ?Medication ?Instructions ?Recorded ?Confirmed ?Last Taken ?Type albuterol sulfate 90 mcg/actuation 2 puff inhalation Q6H PRN Wheezing 01/19/21 06/23/25 06/20/25 History aerosol inhaler sertraline 50 mg tablet 50 mg PO DAILY 01/19/21 06/23/25 06/20/25 History Exam Airway Mallampati Class: III TM Dist: >3cm Neck ROM: Full Loose/Missing/Broken Teeth: No Heart: RRR Lungs: CTA Assessment and Plan Assessment Anesthesia Assessment: Anesthesia Plan Discussed Final Anesthetic Review History of Problems with Anesthesia: No NPO: Yes ASA Class: III Final Preanesthetic Review: Meds/Allgs Chart Reviewed, Consent Obtained/Reviewed and Anes Risks/Benef Reviewed Patient Risk: Intermediate Procedure Risk: Intermediate Anesthetic Plan Anesthetic Plan: MAC: Disposition: Standard PACU
[2025-06-23 09:21] VITALS: BP 146/88; PULSE 76; RESP 18; TEMP 36.4; O2SAT 96; BMI 49.1
[2025-06-23] MEDS: Lactated Ringers 1,000 ML 80 ML IVCONT (09:40)
--- NOTE | 2025-06-23 13:27 | MHC.SHP ---
Pre-Procedural Eval Section A - 24 Hr Update-Section A only Date of Service: 06/23/25 The patient is an INPATIENT: No The patient has been examined within 24 hours of the surgical procedure. The History & Physical has been completed within 30 days and I have reviewed it.: Yes Section B - Complete if H&P > 30 days Chief Complaint: Morbid (severe) obesity due to excess calories Details of Present Illness: GERD Relevant Family History (Specify if Yes): No Relevant Social History: None Present Medications: None Medical History: No relevant PMH History of Previous Operations: No relevant previous surgery Allergies: Allergies Allergy/AdvReac Type Severity Reaction Status Date / Time No Known Allergies (No Known Allergy Verified 04/23/25 13:54 Allergies*) Review of Systems Sugical H&P ROS: Negative: Constitution, Cardiovascular, Respiratory, Neurological, Psychiatric, Hem-Onc, Allergic/Immunologic, Gastrointestinal, Genitourinary, Musculoskeletal, Integumentary, Endocrine and Eyes/Ears/Nose/Throat Exam Surgical H&P Exam: Normal: HEENT, Normal: Heart, Normal: Lungs, Normal: Extremities, Normal: Abdomen, Normal: Skin and Normal: Neurological Plan Diagnosis/Plan: Unchanged (EGD to assess etiology of GERD. Risks of bleeding and perforation were discussed with the patient and she is in agreement with the plan.) I have reviewed the history and physical and performed a pertinent physical examination on my patient. No changes have occurred unless specified. Time Spent With Patient Time: Total time managing care of this patient today ____ minutes.
--- NOTE | 2025-06-23 13:31 | PM.OP ---
Brief Operative Note Date of Service: 06/23/25 Pre-op diagnosis: GERD Procedure: PROCEDURE DATE: 06/23/2025 PREOPERATIVE DIAGNOSIS: GERD POSTOPERATIVE DIAGNOSIS: ?Same as above. Normal endoscopy PROCEDURE: Bzzcgvqf-[id number]-pbvdflmftsts with biopsies Surgeon: Chica Tomas M.D.. Ph.D. Oracle Erp Architect: None ? Anesthesia: IV sedation Estimated blood loss: ?Minimal FINDINGS AND PROCEDURE: ? OPERATIVE INDICATIONS: ?The patient is a 40 year old female known to me who is interested in bariatric surgery. The patient has GERD. Based on this information I recommended an upper endoscopy to evaluate the patient's symptoms. Risks and complications of the surgery were discussed with the patient in advance particularly the possibility of perforation or bleeding that may require surgical intervention. The patient understood the risks and was in agreement with the plan. ? PROCEDURE: After informed consent was obtained by the patient, the patient was ?transferred to the Operating Room and was placed in the supine position.? After successful induction of IV sedation, a mouth block was inserted and the patient was placed in the left lateral decubitus position. An upper endoscopy was performed next, the oropharynx and esophagus appeared within the normal limits. There was no hiatal hernia. The z-line was smooth. Two biopsies were obtained from the distal esophagus 2-3 cm proximal to the GE junction and two additional biopsies from the GE junction. The stomach was entered and it appeared to be of normal size. There was no gastritis. There was no stricture or ulcer. A biopsy was obtained from the gastric fundus and the antrum. No significant bleeding was noted from any of the biopsy sites. Retroflexion of the scope confirmed a normal GE junction. The scope was then advanced into the duodenum which appeared to be normal as well. At that point the duodenum ?and the stomach were decompressed and the scope was withdrawn from the patient's mouth. The patient extubated and was transferred in stable condition to the Recovery Room for further care. I was present and performed all steps of the procedure. There were no residents to assist with this case. Ruperto Tomas M.D., Ph.D. Surgeon: Saul Tomas MD Anesthesia: MAC Was an Oracle Erp Architect used for this Procedure?: No Estimated blood loss (mL): 0 IV fluids (mL): 400 Urine output (mL): 0 (No Amos to record output) Pathology: other (1) antrum x1, 2) fundus x1, 3) GE junction x2, 4) distal esophagus x2) Condition: stable Disposition: PACU
[2025-06-23 13:57] VITALS: BP 131/83; PULSE 82; RESP 18; TEMP 36.1; O2SAT 96
[2025-06-23 14:12] VITALS: BP 139/89; PULSE 76; RESP 18; TEMP 36.2; O2SAT 97
== END 2025-06-23 14:40 | disposition home or self-care (01) ==
PROVIDERS: Visit Provider Surgery
PROC: 0DJ08ZZ Inspection of Upper Intestinal Tract, Via Natural or Artificial Opening Endoscopic (ICD-10-PCS; CPT 43235; principal; 2025-06-23 13:20)
DX: K21.9 Gastro-esophageal reflux disease without esophagitis (principal); E66.01 Morbid (severe) obesity due to excess calories; Z68.43 Body mass index [BMI] 50.0-59.9, adult; J45.909 Unspecified asthma, uncomplicated; R73.03 Prediabetes; E16.1 Other hypoglycemia; F32.A Depression, unspecified; G47.30 Sleep apnea, unspecified; Z99.89 Dependence on other enabling machines and devices; Z79.899 Other long term (current) drug therapy; Z90.49 Acquired absence of other specified parts of digestive tract; Z98.51 Tubal ligation status
CPT/HCPCS: 43239; 88305; 88313; 88342; J2003; J2704

== ENCOUNTER → 2025-06-23 08:48 | Outpatient (BNV) | payer OTHER, SELFPAY | PROVIDERS: Visit Provider Surgery | DX: K21.9 Gastro-esophageal reflux disease without esophagitis (principal) | CPT/HCPCS: 43239 ==

== ENCOUNTER 2025-08-03 09:53 | Outpatient (REF) | payer OTHER, SELFPAY ==
--- NOTE | ~2025-08-03 | US_ITS ---
EXAMINATION: US ABDOMEN COMPLETE WITH LIVER ELASTOGRAPHY HISTORY: E66.01 - Morbid (severe) obesity due to excess calories TECHNIQUE: Real-time grayscale ultrasound imaging of the abdomen was performed and images were reviewed. COMPARISON: Comparison is made with the prior examination dated 02/08/2021. FINDINGS: Liver: The right lobe of the liver measures 16.8 cm in size. The left lobe of the liver measures 9.6 cm in size. The liver demonstrates increased echotexture, consistent with steatosis. No focal mass or intrahepatic biliary ductal dilatation is identified. There is normal hepatopedal flow in the portal vein. Ultrasound elastography of the liver was performed with 10 separate measurements of the liver parenchyma with the patient in the supine position. Measurements were obtained approximately 2 cm below Sunday's capsule and perpendicular to the capsule. The median shear wave velocity is 1.33 m/s (previously 1.34 m/s). The interquartile range/median (IQR/median) is 0.19. Gallbladder and biliary tree: The gallbladder is surgically absent. The common bile duct is normal in caliber measuring 4 mm. Kidneys: The right kidney measures 11.4 cm in length. The left kidney measures 11.0 cm in length. The kidneys are unremarkable, without evidence of masses, hydronephrosis, or calculi. Pancreas: The pancreatic head, neck, and body are unremarkable. The pancreatic tail is obscured by bowel gas. Spleen: The spleen is normal in size and contour, measuring 9.9 cm in length. Abdominal aorta and inferior vena cava: The visualized portions of the abdominal aorta and inferior vena cava are normal in caliber. There is no free fluid in the abdomen. US/US abdomen comp w elastography IMPRESSION: Mild hepatomegaly. Hepatic steatosis. The median shear wave velocity in the liver is 1.33 m/s, corresponding to a median liver stiffness of 5.45 kPa. The IQR/median value is 0.19. This is indicative of a poor quality data set, and the estimated liver stiffness may be unreliable. Findings are indicative of a low elastography value which rules out advanced chronic liver disease in asymptomatic patients. REFERENCE: Society of Radiologists in Ultrasound Liver Stiffness Thresholds (2020): LIVER STIFFNESS THRESHOLDS: *Shear wave velocity less than 1.3 m/s (Liver Stiffness equal or less than 5 kPa): High probability of being normal. *Shear wave velocity less than 1.7 m/s (Liver Stiffness less than 9 kPa): In the absence of other known clinical signs, rules out compensated advanced chronic liver disease. *Shear wave velocity between 1.7-2.1 m/s (Liver Stiffness 9-13 kPa): Suggestive of compensated advanced chronic liver disease but need further test for confirmation. *Shear wave velocity between 2.1-2.4 m/s (Liver Stiffness 13-17 kPa): Rules in compensated advanced chronic liver disease. *Shear wave velocity greater than 2.4 m/s (Liver Stiffness over 17 kPa): Suggestive of clinically significant portal hypertension. QUALITY OF DATA SET: *IQR/Median value equal or less than 0.15 implies a quality data set. *IQR/Median value over 0.15 implies a poor quality data set. SIGNIFICANT CHANGE FROM PRIOR EXAM: Significant change if liver stiffness measurement is 10% or greater from prior exam. OTHER CONSIDERATIONS: The stage of liver fibrosis may be overestimated in the setting of acute hepatitis, liver inflammation, elevated liver function tests, hepatic vascular congestion, obstructive cholestasis, non-fasting state, and infiltrative diseases such as amyloidosis and lymphoma. In some patients with NAFLD, the liver stiffness thresholds for compensated advanced chronic liver disease may be lower. In causes other than viral hepatitis and NAFLD, liver stiffness thresholds are not well established. Electronically signed by: Brooks Hayes MD 08/03/2025 11:43 AM EDT
--- OUTSIDE RECORDS SUMMARY | 2025-08-03 11:29 | XMS_ITS | Clinical Summary ---
Author Organization [facility] Address [address] [place] [address] Phone Care Team Providers Care Non Destructive Testing Inspector Name Role Phone Physician, Pcp Unknown Primary [...] Cervical Cancer Screening: P ap Smear 02/25/2005 HPV Vaccines (1 - 3-dose SCD M series) 02/25/2011 HIV Screening 09/26/2022 Hepatitis C Screening 09/26/2022 Social Influencers of Health Screening 09/26/2022 Depression Screening 10/28/2024 COVID-19 Vaccine (1 - 2023-2 5 season) 2025 Influenza Vaccine (#1) 2025 RSV Immunization Adult Patie nts (1 - 1-dose 75+ series) 02/25/2059 HIB Vaccines Aged Out No longer eligi [...] patient's age to complete this topic Insurance MEDICAID ADVANTAGE Care Teams Non Destructive Testing Inspector Relationship Specialty Start Date End Date Physician, Pcp Unknown PCP - General 12/21/24
== END 2025-08-03 09:54 | disposition home or self-care (01) ==
LOC: HO.US 09:53
PROVIDERS: Visit Provider Surgery
DX: E66.01 Morbid (severe) obesity due to excess calories (principal); R73.03 Prediabetes; E16.1 Other hypoglycemia
CPT/HCPCS: 76700; 76981

== ENCOUNTER → 2025-08-03 09:55 | Outpatient (BNV) | payer OTHER, SELFPAY | PROVIDERS: Visit Provider Radiology Diagnostic Radiology | DX: R16.0 Hepatomegaly, not elsewhere classified (principal); K76.0 Fatty (change of) liver, not elsewhere classified | CPT/HCPCS: 76700 ==